=== PATIENT | female | born 1965 | race Caucasian/White ===

== ENCOUNTER → 2021-07-31 | Outpatient (CLI) | payer BC ==
[~2021-07-31] MED LIST: ALPR-394 PO
[2021-07-31 12:05] LABS: BASOPHILS % 0.3 % (0.0-2.0); EOSINOPHILS % 2.6 % (0.0-5.0); HEMATOCRIT. 37.8 % (36.0-48.0); MEAN CORPUSCULAR HEMOGLOBIN 31.1 pg (28.0-32.0); MEAN CORPUSCULAR VOLUME 90.6 fL (81.0-99.0); MEAN PLATELET VOLUME 9.2 fl (7.4-10.4); MONOCYTES % 6.8 % (2.0-8.0); NEUTROPHILS % 65.3 % (40.0-76.0); PLATELET 230 x1000/uL (130-400); RED BLOOD CELL COUNT 4.18 mill/uL (4.2-5.4); RED CELL DISTRIBUTION WIDTH 12.9 % (11.6-14.6)
[2021-07-31 12:14] LABS: CHLORIDE 108 mEq/L (98-107)
[2021-07-31 12:15] LABS: PARTIAL THROMBOPLASTIN TIME 26.9 sec (23.4-31.0); PROTHROMBIN TIME 10.5 sec (9.6-11.0)
[2021-07-31 12:17] LABS: CLARITY URINE CLEAR (CLEAR); COLOR URINE YELLOW (YELLOW); KETONES URINE NEGATIVE (NEGATIVE); LEUKOCYTE ESTERASE URINE 1+ (NEGATIVE); NITRITE URINE NEGATIVE (NEGATIVE); OCCULT BLOOD URINE NEGATIVE (NEGATIVE); PROTEIN URINE NEGATIVE (NEGATIVE); UROBILINOGEN URINE 0.2 E.U./dL (0.2-1.0)
== END | disposition home or self-care (01) ==
LOC: RAD 11:19
PROVIDERS: ATTEND Obstetrics & Gynecology Obstetrics
DX: Z01.812 Encounter for preprocedural laboratory examination (principal); Z01.810 Encounter for preprocedural cardiovascular examination; Z20.822 Contact with and (suspected) exposure to COVID-19
CPT/HCPCS: 36415; 80048; 81003; 85025; 86850; 86900; 87426; 93005

== ENCOUNTER 2021-08-01 05:44 | Inpatient (IN) | payer BC ==
[~2021-08-01] VITALS: Ht 157.5 cm; Wt 78.0 kg
[2021-08-01] MEDS ORDERED: LACTATED RINGERS 1,000 ML IV SCH (06:00)
[2021-08-01] MEDS ORDERED: METHYLENE BLUE 50 MG/10 ML AMP IV ONE (07:06)
[2021-08-01] MEDS ORDERED: BACITRACIN 15GM TUBE TOP ONE (07:06)
[2021-08-01] MEDS ORDERED: VASOPRESSIN 20 UNIT/ML 1ML ONE (07:07)
[2021-08-01] MEDS ORDERED: METRONIDAZOLE 0.75% VAG GEL 70GM VG SCH (07:15)
[2021-08-01] MEDS ORDERED: METRONIDAZOLE 0.75% VAG GEL 70GM VG ONE (07:16)
[2021-08-01] MEDS ORDERED: FENTANYL CITRATE/PF 50MCG/ML 2ML VIAL ONE ×3 (07:33→13:34)
[2021-08-01] MEDS ORDERED: ROCURONIUM BROMIDE 10MG/ML VIAL 5ML IV ONE ×2 (07:34→09:05)
[2021-08-01] MEDS ORDERED: LIDOCAINE HCL/PF 1% 10 MG/ML 5ML VIAL ONE (07:34)
[2021-08-01] MEDS ORDERED: MIDAZOLAM HCL 2 MG/2 ML VIAL ONE (07:34)
[2021-08-01] MEDS ORDERED: PROPOFOL 200MG/20ML VIAL IV ONE (07:34)
[2021-08-01] MEDS ORDERED: HYDROMORPHONE HCL/PF 2MG/ML (OR) ONE (07:34)
[2021-08-01] MEDS ORDERED: GENTAMICIN SULF 40MG/ML 2ML VIAL ONE (07:38)
[2021-08-01] MEDS ORDERED: CEFAZOLIN SODIUM 1000MG/VIAL ONE (07:38)
[2021-08-01] MEDS ORDERED: CLINDAMYCIN 900 MG PREMIX 50 ML IV ONE (08:41)
[2021-08-01] MEDS ORDERED: GLYCOPYRROLATE 0.2 MG/ML 2ML VIAL ONE ×2 (11:43→12:46)
[2021-08-01] MEDS ORDERED: NEOSTIGMINE METHYLSULFATE 1MG/ML 10 ML VIAL ONE (11:43)
[2021-08-01] MEDS ORDERED: ONDANSETRON HCL 4MG/2ML INJ ONE (11:50)
[2021-08-01] MEDS ORDERED: DEXAMETHASONE 4MG/ML 1ML VIAL ONE (11:50)
[2021-08-01] MEDS ORDERED: KETOROLAC 30MG/ML VIAL ONE (11:53)
[2021-08-01] MEDS ORDERED: VECURONIUM BROMIDE 10 MG/VIAL IV ONE (11:55)
[2021-08-01] MEDS ORDERED: SKIN ADHESIVE 0.7 GM EA TOP ONE (12:39)
[2021-08-01] MEDS ORDERED: FENTANYL CITRATE/PF 50MCG/ML 2ML VIAL IV SCH (13:30)
[2021-08-01] MEDS ORDERED: MEPERIDINE HCL/PF 25MG/ML CPJ IV PRN (13:45)
[2021-08-01] MEDS ORDERED: FENTANYL CITRATE/PF 50MCG/ML 2ML VIAL IV PRN (13:45)
[2021-08-01] MEDS ORDERED: HYDROMORPHONE HCL/PF 2MG/ML CPJ IV PRN (13:45)
[2021-08-01] MEDS ORDERED: HYDROCODONE/ACETAMINOPHEN 5/325MG TABLET PO PRN (13:45)
[2021-08-01] MEDS ORDERED: NALOXONE INJ IV PRN (14:15)
[2021-08-01] MEDS ORDERED: HYDROMORPHONE PCA 10MG/50ML IV PRN (14:15)
[2021-08-01] MEDS ORDERED: DIPHENHYDRAMINE INJ IV PRN (14:15)
[2021-08-01] MEDS: ONDANSETRON HCL 4MG/2ML INJ IV PRN ×2 (14:26→17:17)
[2021-08-01 20:00] VITALS: BP 120/61
[2021-08-01] MEDS: DEXT 5%/LACTATED RINGERS 1,000 ML IV SCH (22:59)
[2021-08-01] MEDS: ONDANSETRON INJ IV PRN (23:00)
[2021-08-02] VITALS: BP 117/42
[2021-08-02 04:00] VITALS: BP 123/52
[2021-08-02] MEDS: DEXT 5%/LACTATED RINGERS 1,000 ML IV SCH ×3 (06:02→22:00)
[2021-08-02 07:30] LABS: HEMATOCRIT. 33.1 % (36.0-48.0); HEMOGLOBIN. 11.2 g/dL (12.0-16.0); LYMPHOCYTES % 8.1 % (20.0-50.0); MEAN CORPUSCULAR HEMOGLOBIN 30.5 pg (28.0-32.0); MEAN CORPUSCULAR VOLUME 90.4 fL (81.0-99.0); MEAN PLATELET VOLUME 9.9 fl (7.4-10.4); MONOCYTES % 6.3 % (2.0-8.0); NEUTROPHILS % 85.6 % (40.0-76.0); PLATELET 173 x1000/uL (130-400); RED BLOOD CELL COUNT 3.67 mill/uL (4.2-5.4); RED CELL DISTRIBUTION WIDTH 12.6 % (11.6-14.6)
[2021-08-02 08:00] VITALS: BP 121/48
[2021-08-02] MEDS ORDERED: ACETAMINOPHEN 325MG TABLET PO PRN (10:30)
[2021-08-02] MEDS ORDERED: NALOXONE HCL 0.4MG/ML VIAL IV PRN (11:00)
[2021-08-02 12:00] VITALS: BP 121/48
[2021-08-02] MEDS: ONDANSETRON INJ IV PRN (14:15)
[2021-08-02] MEDS: HYDROCODONE/ACETAMINOPHEN 10/325MG TABLET PO PRN ×2 (14:16→23:16)
[2021-08-02 16:00] VITALS: BP 125/53
[2021-08-02] MEDS: DOCUSATE SODIUM 100MG CAPSULE PO SCH (18:31)
[2021-08-02 20:00] VITALS: BP 127/46
[2021-08-02] MEDS ORDERED: ALPRAZOLAM 0.25 MG TABLET PO PRN (22:30)
[2021-08-03] VITALS: BP 119/55
[2021-08-03 03:57] VITALS: BP 107/51
[2021-08-03] MEDS: DEXT 5%/LACTATED RINGERS 1,000 ML IV SCH (06:00)
[2021-08-03] MEDS: DOCUSATE SODIUM 100MG CAPSULE PO SCH (09:43)
[2021-08-03] MEDS: HYDROCODONE/ACETAMINOPHEN 10/325MG TABLET PO PRN (09:44)
[2021-08-03 12:00] VITALS: BP 123/63
[2021-08-03 12:54] VITALS: BP 123/73
== END 2021-08-03 13:40 | disposition home or self-care (01) | DRG 743 ==
LOC: OR 05:44 → 6WST 20:30 → 8WST 08-02 08:04
PROVIDERS: ADMIT Obstetrics & Gynecology Obstetrics; ATTEND Obstetrics & Gynecology Obstetrics
PROC: 0UT9FZZ Resection of Uterus, Via Natural or Artificial Opening With Percutaneous Endoscopic Assistance (ICD-10-PCS; principal; 2021-08-01)
PROC: 0UB77ZZ Excision of Bilateral Fallopian Tubes, Via Natural or Artificial Opening (ICD-10-PCS; 2021-08-01)
PROC: 0TSC4ZZ Reposition Bladder Neck, Percutaneous Endoscopic Approach (ICD-10-PCS; 2021-08-01)
PROC: 0JQC3ZZ Repair Pelvic Region Subcutaneous Tissue and Fascia, Percutaneous Approach (ICD-10-PCS; 2021-08-01)
PROC: 0JQC3ZZ Repair Pelvic Region Subcutaneous Tissue and Fascia, Percutaneous Approach (ICD-10-PCS; 2021-08-01)
DX: N81.2 Incomplete uterovaginal prolapse (principal); N39.3 Stress incontinence (female) (male); N83.319 Acquired atrophy of ovary, unspecified side; F41.9 Anxiety disorder, unspecified; Z87.442 Personal history of urinary calculi; Z90.49 Acquired absence of other specified parts of digestive tract; Z88.0 Allergy status to penicillin; Z82.49 Family history of ischemic heart disease and other diseases of the circulatory system
CPT/HCPCS: 36415; 84132; 85025; 88302; 88305; C1725; J0690; J1100; J1170; J1580; J1885; J2175; J2250; J2405; J2704; J2710; J3010; J3490; J7042; J7121; Q9968